=== PATIENT | female | born 1935 | race Caucasian/White ===

== ENCOUNTER 2022-01-29 08:33 | Outpatient (CLI) | payer MEDICARE, OTHER ==
[2022-01-29 09:46] LABS: #Basophils 0.1 10x3/uL (0.0-0.2); #Eosinphils 0.1 10x3/uL (0.0-0.5); #Monocytes 0.6 10x3/uL (0.0-1.1); #Neutrophils 5.1 10x3/uL (1.5-8.4); %Basophils 0.6 % (0.0-2.0); %Eosinophils 1.2 % (0.0-6.0); %Lymphocytes 27.3 % (18.0-47.0); %Monocytes 7.5 % (0.0-10.0); Hemoglobin 10.9 g/dL (12.0-15.5); Mean Corpuscular HGB CONC 30.8 g/dL (32.0-36.0); Mean Corpuscular Hemoglobin 31.3 pg (27.0-33.0); Mean Corpuscular Volume 101.7 fl (81.6-98.3); Mean Platelet Volume 9.2 fl (7.4-10.4); Platelet Count 306 10x3/uL (150-450); RBC Distribution Width 13.3 % (11.5-14.5); Red Blood Cell (RBC) Count 3.48 10x6/uL (3.90-5.03); White Blood Cell (WBC) Count 8.1 10x3/uL (3.5-10.5)
== END 2022-01-29 08:34 | disposition home or self-care (01) ==
LOC: LABBT 08:33
PROVIDERS: ATTEND Orthopaedic Surgery Hand Surgery
DX: Z01.818 Encounter for other preprocedural examination (principal); G56.01 Carpal tunnel syndrome, right upper limb; Z20.822 Contact with and (suspected) exposure to COVID-19
CPT/HCPCS: 85025; 87811; 93005; 93010

== ENCOUNTER 2022-02-01 10:53 | Day surgery (SDC) | payer MEDICARE, OTHER ==
[2022-01-30 13:19] VITALS: BMI 20.5
[2022-02-01] MEDS ORDERED: CEFAZOLIN 2 GM VIAL ONE (13:09)
[2022-02-01] MEDS ORDERED: Lidocaine 1% MPF 2 ML VIAL ONE (13:09)
[2022-02-01] MEDS ORDERED: Sodium Chloride 0.9% 100 ML ONE (13:09)
[2022-02-01] MEDS ORDERED: Famotidine/PF 20 mg/2ml Vial ONE (14:48)
[2022-02-01] MEDS ORDERED: Bupivacaine PF 0.5% 30 ML VIAL ONE (15:16)
[2022-02-01] MEDS ORDERED: Betamet Acet/Betamet Na Ph 30 MG/5 ML VIAL ONE (15:16)
[2022-02-01] MEDS ORDERED: Bacitracin Zinc Ointment 30 gm TUBE ONE (15:16)
[2022-02-01] MEDS ORDERED: Dexamethasone 20 MG/5 ML VIAL ONE (15:28)
[2022-02-01] MEDS ORDERED: PROPOFOL 200 MG/20 ML VIAL ONE (15:28)
[2022-02-01] MEDS ORDERED: Ondansetron PF 4 MG/2 ML Vial ONE (15:28)
[2022-02-01] MEDS ORDERED: Lidocaine 1% PF 5 ML VIAL ONE (15:28)
[2022-02-01] MEDS ORDERED: Ketorolac Tromethamine 30 MG/ML VIAL ONE (16:27)
[2022-02-01] MEDS ORDERED: hydrALAZINE 20 MG/ML VIAL ONE (16:47)
[2022-02-01] MEDS ORDERED: Bacitracin 1 PK ONE (16:47)
== END 2022-02-01 18:20 | disposition home or self-care (01) ==
LOC: SDC 10:53
PROVIDERS: ATTEND Orthopaedic Surgery Hand Surgery
PROC: 01N50ZZ Release Median Nerve, Open Approach (ICD-10-PCS; principal; 2022-02-01)
DX: G56.01 Carpal tunnel syndrome, right upper limb (principal); I73.00 Raynaud's syndrome without gangrene; E78.00 Pure hypercholesterolemia, unspecified; Z86.73 Personal history of transient ischemic attack (TIA), and cerebral infarction without residual deficits; Z79.01 Long term (current) use of anticoagulants; Z79.82 Long term (current) use of aspirin; Z88.8 Allergy status to other drugs, medicaments and biological substances; Z91.013 Allergy to seafood
CPT/HCPCS: J0360; J0690; J0702; J1100; J1885; J2405; J2704; J3490; S0020; S0028

== ENCOUNTER 2023-07-29 15:33 | Inpatient (IN) | payer MEDICARE ==
[~2023-07-29 15:33] MED LIST: Iopamidol-370 76% 500 ML MDV (1 ML CHARGE) ONE
[2023-07-29 16:03] LABS: #Eosinphils 0.1 thou/uL (0.0-0.7); #Monocytes 0.5 thou/uL (0.11-0.59); #Neutrophils 3.2 thou/uL (1.40-6.50); %Basophils 0.4 % (0.0-1.0); %Lymphocytes 47.9 % (21.0-51.0); %Monocytes 6.5 % (0.0-10.0); %Neutrophils 43.8 % (42.0-75.0); Hematocrit 34.4 % (36.0-47.0); Hemoglobin 11.3 g/dL (12.0-16.0); Mean Corpuscular HGB CONC 32.8 g/dL (32.0-36.0); Mean Corpuscular Hemoglobin 32.3 pg (27.0-31.0); Mean Corpuscular Volume 98.3 fl (78.0-98.0); Mean Platelet Volume 9.3 fL (7.4-10.4); Platelet Count 261 10x3/uL (130-400); RBC Distribution Width 13.3 % (11.5-14.5); White Blood Cell (WBC) Count 7.3 10x3/uL (4.8-10.8)
[2023-07-29 16:27] LABS: ALT (SGPT) 11 U/L (8-55); AST (SGOT) 20 U/L (5-34); Alkaline Phosphatase 98 U/L (40-110); Anion Gap 14 mmol/L (10-20); BUN (Urea Nitrogen) 22 mg/dL (9.8-20.1); Bilirubin, Total 0.9 mg/dL (0.2-1.2); Calc. Creatinine Clearance 0 mL/min (70-130); Calcium 8.7 mg/dL (7.8-10.44); Carbon Dioxide 24 mmol/L (23-31); Chloride 102 mmol/L (98-107); Estimated GFR 38; Globulin 2.9 g/dL (2.4-3.5); Glucose 184 mg/dL (83-110); Lipase 47 U/L (8-78); Magnesium 1.8 mg/dL (1.6-2.6); Protein, Total 6.9 g/dL (5.8-8.1); Sodium 136 mmol/L (136-145)
[2023-07-29 16:30] LABS: Troponin I 0.018 ng/mL (< 0.028)
[2023-07-29] MEDS ORDERED: Ondansetron PF 4 MG/2 ML Vial ONE (16:34)
[2023-07-29] MEDS ORDERED: Morphine 2 MG/ML VIAL ONE (16:34)
[2023-07-29] MEDS ORDERED: Nitroglycerin 2% Ointment 1 INCH/1 GM Packet ONE ×2 (16:55→23:07)
[2023-07-29] MEDS ORDERED: diphenhydrAMINE 50 MG/ML VIAL ONE (16:55)
[2023-07-29] MEDS ORDERED: methylPREDNISolone Sod Succ 40 MG VIAL ONE (16:58)
[2023-07-29] MEDS ORDERED: Famotidine/PF 20 mg/2ml Vial ONE (16:58)
[2023-07-29] MEDS ORDERED: Enoxaparin 60 MG (0.6 mL) SYRINGE ONE (18:39)
[2023-07-29] MEDS ORDERED: Sodium Chloride 0.9% 1,000 ML IV SCH (19:15)
[2023-07-29] MEDS ORDERED: Acetaminophen 650 MG Suppository PR PRN (19:15)
[2023-07-29] MEDS ORDERED: Acetaminophen 325 MG TAB PO PRN (19:15)
[2023-07-29 19:25] LABS: Lactic Acid 1.6 mmol/L (0.5-2.2)
[2023-07-29 19:47] LABS: Critical Call Chem Troponin I NUR.DW5@1946; Troponin I 0.282 ng/mL (< 0.028)
[2023-07-29] MEDS ORDERED: Communication Order-Pharmacy FS ONE (19:53)
[2023-07-29] MEDS ORDERED: Famotidine 20 MG TAB PO SCH (21:00)
[2023-07-29 21:40] LABS: Bacteria/HPF None Seen HPF (None Seen); Bilirubin Negative (Negative); Blood, Urine Negative (Negative); CAUTI Indications for Culture Dysuria,urgency,freq; Clarity Clear (Clear); Glucose, Urine (Dipstick) Normal (Negative); Ketone, Urine Negative (Negative); Leukocyte Negative Leu/uL (Negative); Nitrite Negative (Negative); Protein, Urine (Dipstick) Negative (Neg-Trace); RBC/HPF 0-3 HPF (0-3); Specific Gravity, Urine 1.022 (1.002-1.036); Squamous Epithelial None Seen HPF (0-3); Urobilinogen Normal mg/dL (Less than 2); WBC/HPF 0-3 HPF (0-3); pH, Urine 5.5 (5.0-9.0)
[2023-07-29 21:42] LABS: Urine Culture Reflex No No
[2023-07-29] MEDS ORDERED: Nitroglycerin 2% Ointment 1 INCH/1 GM Packet TOP SCH (22:00)
[2023-07-29] MEDS: Nitroglycerin 2% Ointment 1 INCH/1 GM Packet TOP SCH (23:10)
[2023-07-29 23:31] LABS: Critical Call Chem Troponin I NUR.KLH3@2331; Troponin I 1.154 ng/mL (< 0.028)
[2023-07-29 23:40] VITALS: BMI 21.7
[2023-07-30 04:46] LABS: #Monocytes 0.2 thou/uL (0.11-0.59); #Neutrophils 3.5 thou/uL (1.40-6.50); %Basophils 0.2 % (0.0-1.0); %Lymphocytes 23.4 % (21.0-51.0); %Monocytes 3.2 % (0.0-10.0); Hematocrit 32.7 % (36.0-47.0); Hemoglobin 10.5 g/dL (12.0-16.0); Mean Corpuscular HGB CONC 32.1 g/dL (32.0-36.0); Mean Corpuscular Hemoglobin 31.3 pg (27.0-31.0); Mean Corpuscular Volume 97.3 fl (78.0-98.0); Platelet Count 208 10x3/uL (130-400); RBC Distribution Width 13.3 % (11.5-14.5); Red Blood Cell (RBC) Count 3.36 mill/uL (4.20-5.40); White Blood Cell (WBC) Count 4.8 10x3/uL (4.8-10.8)
[2023-07-30 05:03] LABS: Hemoglobin A1c 4.9 % (4.0-6.0)
[2023-07-30 05:30] LABS: BUN (Urea Nitrogen) 22 mg/dL (9.8-20.1); Calc. Creatinine Clearance 31 mL/min (70-130); Calcium 8.3 mg/dL (7.8-10.44); Carbon Dioxide 18 mmol/L (23-31); Cardiac Risk 2.6 (Less than 4.5); Chloride 106 mmol/L (98-107); Cholesterol 146 mg/dl (< 200 Desired); Estimated GFR 51; Glucose 113 mg/dL (83-110); HDL Cholesterol 56 mg/dL (>60 Neg Risk); LDL Cholesterol, Calculated 68 mg/dL; Sodium 135 mmol/L (136-145); Triglycerides 111 mg/dL (Less than 150)
[2023-07-30 05:43] LABS: Anion Gap 16 mmol/L (10-20)
[2023-07-30] MEDS ORDERED: ALPRAZolam 0.25 MG TAB PO PRN (07:25)
[2023-07-30] MEDS: Nitroglycerin 2% Ointment 1 INCH/1 GM Packet TOP SCH ×3 (07:28→21:51)
[2023-07-30] MEDS ORDERED: Aspirin Chewable 81 MG TAB ONE (09:40)
[2023-07-30] MEDS: Aspirin Chewable 81 MG TAB PO SCH (11:41)
[2023-07-30] MEDS: Dronedarone HCl 400 MG TAB PO SCH ×2 (11:43→21:53)
[2023-07-30] MEDS ORDERED: Ascorbic Acid 500 mg Chewable Tablet ONE (11:46)
[2023-07-30] MEDS: Ascorbic Acid 500 mg Chewable Tablet PO SCH (11:48)
[2023-07-30] MEDS: Nitroglycerin 0.4 MG TAB (25 Tab Bottle) SL PRN ×2 (15:31→15:37)
[2023-07-30] MEDS ORDERED: Morphine 2 MG/ML VIAL SLOW IVP PRN (15:37)
[2023-07-30] MEDS ORDERED: diphenhydrAMINE 50 MG/ML VIAL IVP SCH (16:10)
[2023-07-30] MEDS ORDERED: Hydrocortisone Sod Succ/PF 100 mg/2 ml Vial IVP SCH (16:10)
[2023-07-30] MEDS ORDERED: Lidocaine 1% (PF) 30 ML VIAL ONE (16:30)
[2023-07-30] MEDS ORDERED: Heparin 10,000 UNITS/ 10 ML VIAL ONE (16:30)
[2023-07-30] MEDS ORDERED: Verapamil 5 MG/2 ML VIAL ONE (16:30)
[2023-07-30] MEDS ORDERED: Lidocaine 1% PF 5 ML VIAL ONE (16:31)
[2023-07-30] MEDS ORDERED: Nitroglycerin 50 MG/250 ML BOT 250 ML ONE (16:31)
[2023-07-30 16:52] LABS: Critical Call Chem Troponin I NUR.VB5@1651; Troponin I 6.528 ng/mL (< 0.028)
[2023-07-30] MEDS ORDERED: Adenosine 6 mg (2 mL) VIAL ONE (16:54)
[2023-07-30] MEDS ORDERED: fentaNYL 50 mcg/mL 1 mL Vial ONE (16:59)
[2023-07-30] MEDS ORDERED: EPINEPHrine 1 MG/ML VIAL ONE (17:01)
[2023-07-30] MEDS ORDERED: Hydrocortisone Sod Succ/PF 100 mg/2 ml Vial ONE (17:04)
[2023-07-30] MEDS ORDERED: Atropine Sulfate 1 mg/10 ml Syringe ONE (17:25)
[2023-07-30] MEDS ORDERED: Nitroglycerin 4.9 GM Bottle ONE (17:40)
[2023-07-30] MEDS ORDERED: Clopidogrel Bisulfate 300 MG TAB ONE (18:31)
[2023-07-30] MEDS ORDERED: Sodium Chloride 0.9% 1,000 ML IV SCH (18:45)
[2023-07-30] MEDS ORDERED: Enoxaparin 60 MG (0.6 mL) SYRINGE SC SCH (21:00)
[2023-07-30] MEDS: Gabapentin 100 MG CAP PO SCH (21:52)
[2023-07-30] MEDS: Atorvastatin Calcium 40 MG TAB PO SCH (21:52)
[2023-07-31] MEDS: Nitroglycerin 2% Ointment 1 INCH/1 GM Packet TOP SCH (05:13)
[2023-07-31 06:45] LABS: #Monocytes 0.5 thou/uL (0.11-0.59); #Neutrophils 4.6 thou/uL (1.40-6.50); %Basophils 0.4 % (0.0-1.0); %Eosinophils 0.3 % (0.0-10.0); %Lymphocytes 28.3 % (21.0-51.0); %Monocytes 6.8 % (0.0-10.0); %Neutrophils 63.9 % (42.0-75.0); Hematocrit 27.8 % (36.0-47.0); Hemoglobin 8.7 g/dL (12.0-16.0); Mean Corpuscular HGB CONC 31.3 g/dL (32.0-36.0); Mean Corpuscular Hemoglobin 31.5 pg (27.0-31.0); Mean Corpuscular Volume 100.7 fl (78.0-98.0); Mean Platelet Volume 9.4 fL (7.4-10.4); Platelet Count 196 10x3/uL (130-400); RBC Distribution Width 13.6 % (11.5-14.5); Red Blood Cell (RBC) Count 2.76 mill/uL (4.20-5.40); White Blood Cell (WBC) Count 7.2 10x3/uL (4.8-10.8)
[2023-07-31 07:16] LABS: ALT (SGPT) 12 U/L (8-55); AST (SGOT) 43 U/L (5-34); Albumin 3.2 g/dL (3.4-4.8); Alkaline Phosphatase 79 U/L (40-110); Anion Gap 9 mmol/L (10-20); BUN (Urea Nitrogen) 22 mg/dL (9.8-20.1); Bilirubin, Total 0.5 mg/dL (0.2-1.2); Calc. Creatinine Clearance 27 mL/min (70-130); Calcium 8.1 mg/dL (7.8-10.44); Carbon Dioxide 24 mmol/L (23-31); Chloride 109 mmol/L (98-107); Estimated GFR 46; Globulin 2.2 g/dL (2.4-3.5); Glucose 91 mg/dL (83-110); Potassium 4.6 mmol/L (3.5-5.1); Protein, Total 5.4 g/dL (5.8-8.1); Sodium 137 mmol/L (136-145)
[2023-07-31 08:08] LABS: Troponin I 6.877 ng/mL (< 0.028)
[2023-07-31] MEDS: Aspirin Chewable 81 MG TAB PO SCH (08:25)
[2023-07-31] MEDS: Ascorbic Acid 500 mg Chewable Tablet PO SCH (08:25)
[2023-07-31] MEDS: Dronedarone HCl 400 MG TAB PO SCH ×2 (08:26→20:14)
[2023-07-31] MEDS ORDERED: Senokot S 8.6-50 MG TAB PO PRN (12:17)
[2023-07-31] MEDS: Atorvastatin Calcium 40 MG TAB PO SCH (20:14)
[2023-07-31] MEDS: Gabapentin 100 MG CAP PO SCH (20:14)
[2023-07-31] MEDS: Apixaban 2.5 MG TAB PO SCH (20:14)
[2023-07-31] MEDS ORDERED: Polyethylene Glycol 3350 17 GM Packet PO SCH (21:00)
[2023-08-01 03:07] VITALS: TEMP 97.3
[2023-08-01 04:03] LABS: #Eosinphils 0.1 thou/uL (0.0-0.7); #Monocytes 0.5 thou/uL (0.11-0.59); #Neutrophils 3.4 thou/uL (1.40-6.50); %Basophils 0.3 % (0.0-1.0); %Eosinophils 1.5 % (0.0-10.0); %Lymphocytes 37.7 % (21.0-51.0); %Monocytes 7.9 % (0.0-10.0); %Neutrophils 52.4 % (42.0-75.0); Hematocrit 29.4 % (36.0-47.0); Hemoglobin 9.4 g/dL (12.0-16.0); Mean Corpuscular Hemoglobin 31.9 pg (27.0-31.0); Mean Corpuscular Volume 99.7 fl (78.0-98.0); Mean Platelet Volume 9.5 fL (7.4-10.4); Platelet Count 212 10x3/uL (130-400); RBC Distribution Width 13.8 % (11.5-14.5); Red Blood Cell (RBC) Count 2.95 mill/uL (4.20-5.40); White Blood Cell (WBC) Count 6.5 10x3/uL (4.8-10.8)
[2023-08-01 04:25] LABS: Anion Gap 10 mmol/L (10-20); BUN (Urea Nitrogen) 22 mg/dL (9.8-20.1); Calc. Creatinine Clearance 27 mL/min (70-130); Calcium 8.4 mg/dL (7.8-10.44); Carbon Dioxide 27 mmol/L (23-31); Chloride 107 mmol/L (98-107); Estimated GFR 45; Glucose 89 mg/dL (83-110); Magnesium 1.8 mg/dL (1.6-2.6); Potassium 4.3 mmol/L (3.5-5.1); Sodium 140 mmol/L (136-145)
[2023-08-01] MEDS ORDERED: Magnesium 2 GM/50 ML(in water) 2 GM in Premix 1 BAG IVPB SCH (08:15)
[2023-08-01 08:20] VITALS: BP 136/71
[2023-08-01] MEDS ORDERED: Clopidogrel Bisulfate 75 MG TAB PO SCH (09:00)
[2023-08-01] MEDS: Ascorbic Acid 500 mg Chewable Tablet PO SCH (09:31)
[2023-08-01] MEDS: Apixaban 2.5 MG TAB PO SCH (09:31)
[2023-08-01] MEDS: Dronedarone HCl 400 MG TAB PO SCH (09:31)
== END 2023-08-01 13:00 | disposition home or self-care (01) | DRG 324 ==
LOC: ERS 15:33 → ERHOLD 18:23 → OBSVTOIN 23:33 → 2SW 07-30 14:21 → CCU 07-30 19:19 → 2SE 07-31 10:03
PROVIDERS: ADMIT Family Medicine; ATTEND Internal Medicine
PROC: 4A023N7 Measurement of Cardiac Sampling and Pressure, Left Heart, Percutaneous Approach (ICD-10-PCS; principal; 2023-07-30)
PROC: 027034Z Dilation of Coronary Artery, One Artery with Drug-eluting Intraluminal Device, Percutaneous Approach (ICD-10-PCS; 2023-07-30)
PROC: B2151ZZ Fluoroscopy of Left Heart using Low Osmolar Contrast (ICD-10-PCS; 2023-07-30)
PROC: B2111ZZ Fluoroscopy of Multiple Coronary Arteries using Low Osmolar Contrast (ICD-10-PCS; 2023-07-30)
PROC: 02F03ZZ Fragmentation in Coronary Artery, One Artery, Percutaneous Approach (ICD-10-PCS; 2023-07-30)
DX: I21.4 Non-ST elevation (NSTEMI) myocardial infarction (principal); E87.1 Hypo-osmolality and hyponatremia; N17.9 Acute kidney failure, unspecified; E87.20 Acidosis, unspecified; I25.110 Atherosclerotic heart disease of native coronary artery with unstable angina pectoris; E78.5 Hyperlipidemia, unspecified; I48.91 Unspecified atrial fibrillation; Z91.041 Radiographic dye allergy status; Z79.82 Long term (current) use of aspirin; Z79.899 Other long term (current) drug therapy; Z90.49 Acquired absence of other specified parts of digestive tract; Z90.710 Acquired absence of both cervix and uterus; N18.31 Chronic kidney disease, stage 3a; I12.9 Hypertensive chronic kidney disease with stage 1 through stage 4 chronic kidney disease, or unspecified chronic kidney disease; D63.1 Anemia in chronic kidney disease
CPT/HCPCS: 36415; 71045; 71275; 74174; 80048; 80053; 80061; 81001; 83036; 83605; 83690; 83735; 83880; 84443; 84484; 85025; 85347; 92928; 92978; 93005; 93010; 93458; 93798; 94760; C1725; C1753; C1760; C1761; C1769; C1874; C1887; C1894; C9600; J0153; J0171; J0461; J1200; J1644; J1650; J1720; J2001; J2272; J2405; J2920; J3010; J3475; J7050; Q9967; S0028